=== PATIENT | male | born 1995 | race Two or more races ===

== ENCOUNTER 2019-02-14 22:07 | Emergency (ER) | payer OTHER ==
[~2019-02-14] VITALS: Ht 175.3 cm; Wt 89.0 kg
[2019-02-14] MEDS ORDERED: KETOROLAC 30 MG/1 ML IVPush ONE (22:30)
[2019-02-14] MEDS ORDERED: ACETAMINOPHEN 500 MG TABLET PO ONE (22:30)
[2019-02-14] MEDS ORDERED: SODIUM CHLORIDE 0.9% 1,000ML IVBOLUS ONE (22:30)
--- NOTE | 2019-02-14 22:30 | NUR ---
pt in gown in [facility]. ira deal at bs for pt history and assessment. pt educated on er process and poc and verbalizes understanding. 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 pt tachycardic, but vss at this time. pt has call light within reach. iv access established and blood drawn at bs and tubed to lab.
[2019-02-14 22:45] LABS: BASOPHILS # (AUTO) 0.01 x10^3/uL (0-0.1); BASOPHILS % (AUTO) 0 % (0-1); EOSINOPHILS % (AUTO) 0 % (1-7); LYMPHOCYTES # (AUTO) 0.44 x10^3/uL (1-3.4); LYMPHOCYTES % (AUTO) 4 % (22-44); MD NO; MEAN CORPUSCULAR HGB CONC 33.2 g/dL (33.2-36.2); MEAN CORPUSCULAR VOLUME 96.2 fL (81-97); MONOCYTES # (AUTO) 0.29 x10^3/uL (0.2-0.8); MONOCYTES % (AUTO) 3 % (2-9); NEUTROPHILS # (AUTO) 10.17 x10^3/uL (1.8-6.8); NEUTROPHILS % (AUTO) 93 % (42-75); PLATELET COUNT 328 x10^3/uL (130-400); RED BLOOD COUNT 5.98 x10^6/uL (4.38-5.82); RED CELL DISTRIBUTION WIDTH 12.8 % (9.4-14.8)
[2019-02-14] MEDS ORDERED: KETOROLAC 30 MG/1 ML ONE (22:52)
[2019-02-14] MEDS ORDERED: ACETAMINOPHEN 500 MG TABLET ONE (22:52)
[2019-02-14 22:54] LABS: ALANINE AMINOTRANSFERASE 18 U/L (12-78); ALBUMIN 4.4 g/dL (3.4-5.0); ANION GAP 10 mmol/L (5-15); CALCIUM 9.3 mg/dL (8.5-10.1); CHLORIDE 106 mmol/L (98-107); CREATININE 1.29 mg/dL (0.7-1.3)
[2019-02-14 22:57] LABS: ALKALINE PHOSPHATASE 60 U/L (45-117); BILIRUBIN,TOTAL 0.9 mg/dL (0.2-1.0); TOTAL PROTEIN 8.4 g/dL (6.4-8.2)
--- NOTE | 2019-02-14 22:58 | NUR ---
PT MEDICATED PER MAR. PT VSS AT THIS TIME.
[2019-02-14 23:04] LABS: RAPID INFLUENZA A Negative (Negative); RAPID INFLUENZA B Negative (Negative)
[2019-02-15 00:42] VITALS: BP 131/66
== END 2019-02-15 00:44 | disposition home or self-care (01) ==
LOC: ED 23:25
DX: B34.9 Viral infection, unspecified (principal); R53.83 Other fatigue
CPT/HCPCS: 36415; 71046; 80053; 85025; 87081; 87400; 87880; 93005; 96374; 99284; J1885; J7030